=== PATIENT | male | born 1945 | race Caucasian/White ===

== ENCOUNTER 2016-08-25 08:55 | Inpatient (IN) ==
[2016-08-25] MEDS ORDERED: DIPH/TET/ACEL PERT BOOSTER VACCINE 0.5 ML VIAL IM ONE ×2 (09:52→11:21)
--- NOTE | 2016-08-25 09:57 | Emergency Department Note ---
Arrival - Arrival ED Nursing Triage Note: reports was at [facility] going out to get a vehicle and fell onto ground. reports fell onto right side. reportsright hip pain and cant bear any weight. 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 also c/o right side neck pain. c collar placed on pt in triage. Mode of Arrival: Wheelchair Source: Patient - History of Present Illness Onset (ago): minute(s) (30) Severity: mild Quality: aching <Vanesa Jacques - Last Filed: 08/25/16 10:03> <Garcia Crockett - Last Filed: 08/25/16 10:55> - Arrival Chief Complaint: Fall Stated Complaint: FALL, ABD PAIN Time Seen by Provider: 08/25/16 09:40 - History of Present Illness HPI Narrative: 71 y/o white male presents to the ER per EMS complaining of right hip pain and right shoulder pain S/P fall. Patient states he was at [facility] when he tripped and fell. After falling he is unable to bear weight. Denies LOC. Past medical history significant for CAD, Cardiac Stent, HTN, GERD, Gout, RA, Depression. (Vanesa Jacques) Allergies/Adverse Reactions: Allergies Allergy/AdvReac Type Severity Reaction Status Date / Time No Known Allergies Allergy Unverified 12/22/14 14:08 Home Medications: Home Medications Medication Instructions Recorded Confirmed Type Aspirin [Ecotrin] 81 mg PO DAILY 12/22/14 08/25/16 History Clopidogrel Bisulfate [Clopidogrel] 75 mg PO DAILY 12/22/14 08/25/16 History Metoprolol Tartrate Tab [Lopressor 25 mg PO DAILY 12/22/14 08/25/16 History Tab] Pravastatin Sodium 80 mg PO DAILY 12/22/14 08/25/16 History tiZANidine [Zanaflex] 4 mg PO DAILY 12/22/14 08/25/16 History Allopurinol [Zyloprim] 100 mg PO DAILY 08/25/16 08/25/16 History Dexlansoprazole [Dexilant] 60 mg PO DAILY 08/25/16 08/25/16 History Zolpidem Tartrate 10 mg PO BEDTIME 08/25/16 08/25/16 History Review of System - Review of System 12 point system: reviewed and no additional remarkable complaints except as stated - Review of System Musculoskeletal: Present: other (right hip pain; right shoulder pain; neck pain ) Skin: Present: other (abrasions to right hand; and to right elbow ) <Vanesa Jacques - Last Filed: 08/25/16 10:03> Medical,Surgical,& Family Hx - Medical History Cardio: History of: CAD (stent 2004), Hypertension, Cardiovascular Problems ( STENTS X 2) Psychological: History of: Depression Neurology: No history of: Seizures HEENT: History of: Ear Problem (HARD OF HEARING), Eye Problem (GLASSES, CATARACTS) Endocrine: No history of: Diabetes Mellitus (IDDM), Diabetes Mellitus (NIDDM) Rheumatology: History of;: Gout, Rheumatoid Arthritis Respiratory: No history of: Asthma, COPD Renal: History of: Renal Problems (BLOOD IN URINE) Genitourinary: No history of: Kidney Stones, Prostate Problems, Problems Gastrointestinal: History of: GERD, GI Problems (remote history of peptic ulcer disease) No history of: Gastrointestinal Bleed, Liver Problems Musculoskeletal: History of: Musculoskeletal Problems (LEFT SHOULDER PAIN) Hematology: History of: Bleeding Problems (BLOOD IN URINE), Clotting Problems ( PAST HISTORY OF BLOOD CLOT IN RIGHT LEG) - Surgical History Cardiac Surgeries: Sugical HX of: Cardiac Catheterization (coronary stents) HEENT Surgeries: Surgical HX of: Tonsilectomy & Adenoidectomy Abdominal Surgeries: Surgical HX of: Abdominal Surgery, Appendectomy, Colonoscopy, EGD - Family History Family History: Reports;: Family Cancer (DAD), Family Diabetes (MOM), Family Heart Disease (MOM), Family Hypertension (MOM), Family Stroke (MOM) - Social History Smoking Status: Former smoker <Vanesa Jacques - Last Filed: 08/25/16 10:03> Exam - General General appearance: alert, in no apparent distress - ENT ENT exam: Present: normal exam, normal oropharynx, mucous membranes moist - Neck Neck exam: Present: tenderness (cervicle spine ) - Chest Chest inspection: Present: normal inspection - Respiratory Respiratory exam: Present: normal lung sounds bilaterally - Cardiovascular Cardiovascular exam: Present: regular rate, normal rhythm, normal heart sounds - Abdominal Exam Abdominal exam: Present: soft, normal bowel sounds. Absent: tenderness - Extremities Exam Extremities exam: Present: tenderness (diffuse TTP to right shoulder; no swelling or ecchymosis ), other - Expanded Lower Right Lower Hip/Pelvis exam: Present: tenderness (right femoral neck ) - Back Exam Back exam: Present: normal inspection. Absent: vertebral tenderness - Neurological Exam Neurological exam: Present: alert, oriented X3 - Psychiatric Psychiatric exam: Present: normal affect, normal mood - Skin Skin exam: Present: warm, dry, other (superficial abrasions to right elbow and palm or right hand; no active bleeding) <Vanesa Jacques - Last Filed: 08/25/16 10:03> - Expanded Upper Right Upper Extremity Elbow exam: Present: full ROM, abrasion Hand exam: Present: full ROM, abrasion <Garcia Crockett - Last Filed: 08/25/16 10:55> Vital Signs: Vital Signs Temperature 97.6 F 08/25/16 09:20 Pulse Rate 61 08/25/16 09:50 Respiratory Rate 16 08/25/16 09:50 Blood Pressure 146/89 08/25/16 09:50 O2 Sat by Pulse Oximetry 99 08/25/16 09:50 (Vaneas Jacques) (Garcia Crockett) Disposition <Vanesa Jacques - Last Filed: 08/25/16 10:03> Case discussed with: patient <Garcia Crockett - Last Filed: 08/25/16 10:55> Clinical Impression: Subcapital fracture of neck of right femur Disposition: Still a Patient Condition: Stable Additional Instructions: Admit for surgical repair.
--- NOTE | 2016-08-25 10:32 | XRay Report ---
History: Right hip pain related to fall. Unable to bear weight Date: 08/25/2016 Study: Right hip 2 views Comparison exam: No previous dedicated right hip x-ray There is a nondisplaced incomplete acute subcapital impaction fracture of the right hip with anatomic alignment. No additional fracture seen. There is mild osteophyte formation of the right hip. There is osteopenia. Impression: Acute nondisplaced incomplete subcapital fracture right hip PROCEDURE INTERPRETED AT [facility] DEPARTMENT OF RADIOLOGY Final Report Signed by: Dr. Cass Degroot
--- NOTE | 2016-08-25 10:35 | XRay Report ---
History: Neck pain after fall Date: 08/25/2016 Study: Cervical spine 5 views Comparison exam: Cervical spine x-ray August 13, 2013 There is no fracture, subluxation, or prevertebral soft tissue swelling. There is osteopenia. There is moderate degenerative disc narrowing at C5-C6. There is mild anterior spondylosis at C5-C6 and C6-C7. There is mild facet hypertrophy. There is no focal lytic or blastic lesion. Impression: No acute fracture. Degenerative disc disease. Osteopenia PROCEDURE INTERPRETED AT [facility] DEPARTMENT OF RADIOLOGY Final Report Signed by: Dr. Cass Degroot
--- NOTE | 2016-08-25 10:35 | XRay Report ---
Exam: XR shoulder 2V RT Date: 08/25/2016 9:51 AM Comparison: None Indication: Right shoulder pain after fall Technique: Two-view right shoulder Findings: A.c. joint arthropathy with inferior osteophyte. No fracture or dislocation. Old healed fracture of the right sixth posterior rib. Impression: A.c. joint arthropathy with inferior osteophyte. No fracture or dislocation. Old healed fracture of the right sixth rib. PROCEDURE INTERPRETED AT [facility] DEPARTMENT OF RADIOLOGY Final Report Signed by: Dr. Nuria Mcdonald
[2016-08-25] MEDS ORDERED: traZODone 50 MG TABLET PO PRN (11:04)
[2016-08-25] MEDS ORDERED: BISACODYL 5 MG TABLET PO PRN (11:04)
--- NOTE | 2016-08-25 11:17 | Orthopedic Consult Note ---
History of Present Illness Chief complaint: right hip pain History of present illness: Mr. Martinez is a 71 year old male who had a fall earlier today. He family member had an appointment at the [facility], he fell as he was going to get the car. He denies any syncope or presyncopal symptoms. States he lost his balance and fell onto his right side. After fall he began complaining of right hip and right shoulder pain. He was then transported here to the emergency department for evaluation. He's had surgery on the right hand in the distant past for traumatic injury. He had stents placed by Dr. Yeager in the past and does take Plavix for this. Home Medications Medication Instructions Recorded Confirmed Type Aspirin [Ecotrin] 81 mg PO DAILY 12/22/14 08/25/16 History Clopidogrel Bisulfate [Clopidogrel] 75 mg PO DAILY 12/22/14 08/25/16 History Metoprolol Tartrate Tab [Lopressor 25 mg PO DAILY 12/22/14 08/25/16 History Tab] Pravastatin Sodium 80 mg PO DAILY 12/22/14 08/25/16 History tiZANidine [Zanaflex] 4 mg PO DAILY 12/22/14 08/25/16 History Allopurinol [Zyloprim] 100 mg PO DAILY 08/25/16 08/25/16 History Dexlansoprazole [Dexilant] 60 mg PO DAILY 08/25/16 08/25/16 History Zolpidem Tartrate 10 mg PO BEDTIME 08/25/16 08/25/16 History Allergies Allergy/AdvReac Type Severity Reaction Status Date / Time No Known Allergies Allergy Unverified 12/22/14 14:08 12 point system: reviewed and no additional remarkable complaints except as stated Medical,Surgical,& Family Hx - Medical History Cardio: History of: CAD (stent 2003), Hypertension, Cardiovascular Problems ( STENTS X 2) Psychological: History of: Depression Neurology: No history of: Seizures HEENT: History of: Ear Problem (HARD OF HEARING), Eye Problem (GLASSES, CATARACTS) Endocrine: No history of: Diabetes Mellitus (IDDM), Diabetes Mellitus (NIDDM) Rheumatology: History of;: Gout, Rheumatoid Arthritis Respiratory: No history of: Asthma, COPD Renal: History of: Renal Problems (BLOOD IN URINE) Genitourinary: No history of: Kidney Stones, Prostate Problems, Problems Gastrointestinal: History of: GERD, GI Problems (remote history of peptic ulcer disease) No history of: Gastrointestinal Bleed, Liver Problems Musculoskeletal: History of: Musculoskeletal Problems (LEFT SHOULDER PAIN) Hematology: History of: Bleeding Problems (BLOOD IN URINE), Clotting Problems ( PAST HISTORY OF BLOOD CLOT IN RIGHT LEG) - Surgical History Cardiac Surgeries: Sugical HX of: Cardiac Catheterization (coronary stents) HEENT Surgeries: Surgical HX of: Tonsilectomy & Adenoidectomy Abdominal Surgeries: Surgical HX of: Abdominal Surgery, Appendectomy, Colonoscopy, EGD - Family History Family History: Reports;: Family Cancer (DAD), Family Diabetes (MOM), Family Heart Disease (MOM), Family Hypertension (MOM), Family Stroke (MOM) - Social History Smoking Status: Former smoker Exam - Constitutional Vitals: Period Temp Pulse Resp BP Sys/Schwartz Pulse Ox Last 24 Hr 97.6 F 57-63 16-18 130-173/74-89 99-100 Exam: Right upper extremity: He has a small abrasion on the medial aspect of the right elbow. He has full range of motion both actively and passively at the shoulder, elbow, wrist, and hand. He's tender about the posterior shoulder. He is otherwise neurovascularly intact. He has a healed skin graft on the ulnar aspect of the right palm. Right lower extremity: He has pain in the hip and groin with internal/external rotation of the right hip. He is nontender in the knee ankle and foot. He has a 1+ dorsalis pedis pulse. He can wiggle his toes and dorsiflex and plantarflex the foot. Results - Diagnostic Findings Procedure: X-ray: image reviewed by me (retrogress of the shoulder show no fracture, everything is well aligned. Retrogress of the right hip show minimally displaced fracture right hip subcapital region) Assessment and Plan (1) Subcapital fracture of neck of right femur Status: Acute Assessment and plan: I discussed the injury at length with Mr. Martinez today in the emergency department. I described the femoral neck fracture in detail. I recommended closed reduction and pinning of the fracture to prevent displacement and allow him to weight-bear on the hip for ambulatory purposes. All questions were answered to his satisfaction. Risks, alternatives, and benefits to undergoing this procedure were discussed in great detail, the patient voiced understanding desire proceed. Risks discussed included, but were not limited to, bleeding, infection, damage to arteries and nerves, nonunion, malunion, need for revision surgery, as well as medical complications. We'll get him on the schedule for this afternoon as he did eat breakfast this morning. We will have to see how he does postoperatively with therapy to see whether he not he can go home with home therapy or if he will need rehabilitation placement. Current Visit: Yes
[2016-08-25] MEDS ORDERED: ceFAZolin 1,000 MG VIAL ONE (11:20)
[2016-08-25 11:25] LABS: Basophils # 0.1 10*3/uL (0.0-0.2); Basophils % 0.8 % (0.0-0.8); Eosinophils # 0.4 10*3/uL (0.0-0.87); Eosinophils % 4.9 % (0.00-10.9); Hematocrit 45.1 VOL% (42.0-52.0); Hemoglobin 15.1 GM/DL (14.0-18.0); Immature Granulocytes % 0.5 %; Immature Granulocytes Absolute 0.04 #; Lymphocytes # 1.3 10*3/uL (1.4-4.0); Lymphocytes % 16.4 % (21.2-54.2); Mean Corpuscular HGB Conc 33.5 GM/DL (32-36); Mean Corpuscular Hemoglobin 31 PG (27-34); Mean Platelet Volume 9.8 FL (9.6-12.0); Monocytes # 0.6 10*3/uL (0.11-0.8); Monocytes % 7.3 % (1.7-12.7); Neutrophils # 5.6 10*3/uL (1.4-7.4); Neutrophils % 70.1 % (38.7-73.9); Platelet Count 153 10*3/uL (130-400); Red Cell Distribution Width 12.7 % (9.3-17.3); White Blood Count 7.9 10*3/uL (4.5-13.71)
--- NOTE | 2016-08-25 11:36 | EKG Report ---
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
[2016-08-25 11:55] LABS: Albumin 3.7 G/DL (3.4-5.0); Bilirubin,Total 0.7 MG/DL (0.2-1.0); Calcium 8.5 MG/DL (8.5-10.1); Osmolality,Calculated 287.1 MOS/KG (273-304); Potassium 5.6 MMOL/L (3.5-5.1)
[2016-08-25] MEDS: DEXTROSE 5% NACL 0.45% 1,000 ML IV SCH ×2 (12:21→20:31)
[2016-08-25] MEDS: HYDROmorphone 2 MG/1 ML VIAL IV PRN ×6 (12:22→18:14)
--- NOTE | 2016-08-25 13:20 | Family Practice History&Phys ---
Assessment and Plan (1) Subcapital fracture of neck of right femur Status: Acute Assessment and plan: 08/25/2016: Patient seen and evaluated by Dr. Sanchez and is scheduled for surgery later this afternoon. She was noted to have a normal EKG in the emergency room. Patient has no contraindications to planned procedure and has no increased risk of cardiovascular or pulmonary complications except those attributable to his age. Current Visit: Yes History of Present Illness Chief complaint: hip pain History of present illness: Mr. 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 Patient injured his right hip in the process as well as his right shoulder and right elbow. He had no loss of consciousness. He had x-rays of the hip made emergency room film have a subcapital fracture of the right hip. The remainder of his x-rays were unremarkable. Patient denied any headache and he denies any back pain or right lower extremity pain. He denies any nausea or vomiting. Patient is not having any chest pain or shortness of breath. Home Medications Medication Instructions Recorded Confirmed Type Aspirin [Ecotrin] 81 mg PO DAILY 12/22/14 08/25/16 History Clopidogrel Bisulfate [Clopidogrel] 75 mg PO DAILY 12/22/14 08/25/16 History Metoprolol Tartrate Tab [Lopressor 25 mg PO DAILY 12/22/14 08/25/16 History Tab] Pravastatin Sodium 80 mg PO DAILY 12/22/14 08/25/16 History tiZANidine [Zanaflex] 4 mg PO DAILY 12/22/14 08/25/16 History Allopurinol [Zyloprim] 100 mg PO DAILY 08/25/16 08/25/16 History Dexlansoprazole [Dexilant] 60 mg PO DAILY 08/25/16 08/25/16 History Zolpidem Tartrate 10 mg PO BEDTIME 08/25/16 08/25/16 History Allergies Allergy/AdvReac Type Severity Reaction Status Date / Time No Known Allergies Allergy Unverified 12/22/14 14:08 12 point system: reviewed and no additional remarkable complaints except as stated - Cardiovascular Cardiovascular: Absent: chest pain at rest, chest pain with activity, dyspnea - Respiratory Respiratory: Absent: dyspnea - Musculoskeletal Musculoskeletal: Present: as per HPI, arthralgias (right hip, right elbow and right shoulder.) - Neurological Neurological: Absent: confusion, dizziness, focal weakness, frequent falls, numbness, paresthesias - Psychiatric Psychiatric: Absent: anxiety, confusion, depression - Endocrine Endocrine: Absent: fatigue, polydipsia, polyphagia Medical,Surgical,& Family Hx - Medical History Cardio: History of: CAD (stent 2004), Hypertension, Cardiovascular Problems ( STENTS X 2) Psychological: History of: Depression Neurology: No history of: Seizures HEENT: History of: Ear Problem (HARD OF HEARING), Eye Problem (GLASSES, CATARACTS) Endocrine: No history of: Diabetes Mellitus (IDDM), Diabetes Mellitus (NIDDM) Rheumatology: History of;: Gout, Rheumatoid Arthritis Respiratory: No history of: Asthma, COPD Renal: History of: Renal Problems (BLOOD IN URINE) Genitourinary: No history of: Kidney Stones, Prostate Problems, Problems Gastrointestinal: History of: GERD, GI Problems (remote history of peptic ulcer disease) No history of: Gastrointestinal Bleed, Liver Problems Musculoskeletal: History of: Musculoskeletal Problems (LEFT SHOULDER PAIN) Hematology: History of: Bleeding Problems (BLOOD IN URINE), Clotting Problems ( PAST HISTORY OF BLOOD CLOT IN RIGHT LEG) - Surgical History Cardiac Surgeries: Sugical HX of: Cardiac Catheterization (coronary stents) HEENT Surgeries: Surgical HX of: Tonsilectomy & Adenoidectomy Abdominal Surgeries: Surgical HX of: Abdominal Surgery, Appendectomy, Colonoscopy, EGD - Family History Family History: Reports;: Family Cancer (DAD), Family Diabetes (MOM), Family Heart Disease (MOM), Family Hypertension (MOM), Family Stroke (MOM) - Social History Smoking Status: Former smoker Exam - Constitutional Vitals: Period Temp Pulse Resp BP Sys/Schwartz Pulse Ox Last 24 Hr 66 15 151/87 98 Exam: General: Objective patient is a well-developed white male in no acute distress. Patient states his right hip is painful with any motion. HEENT: Pupils equal and reactive to light. Patent nares and airway Neck: No meningismus, adenopathy, thyromegaly. There are no auscultated carotid bruits. Cardiovascular: Regular rhythm. No murmurs or gallops Chest: Clear to auscultation without rales rhonchi wheezes. Abdomen: Soft nontender to palpation No masses, rebound, guarding or tenderness. Neuro: Cranial nerves intact and DTRs and strength symmetric in all extremities. Dermatologic: No evidence of abnormal lesions or masses. Musculoskeletal: Patient has abrasion to his right elbow and his right hand range of motion of both. Results - Labs CBC & BMP: 08/25/16 11:09 08/25/16 11:09 Lab Results: I have reviewed the past 24 hour labs - EKG EKG results: sinus rhythm (59 bpm) - Diagnostic Findings Procedure: Chest x-ray: report reviewed by me (chest x-ray is normal.), X-ray: report reviewed by me (patient was sent For fractured right hip. Patient shoulder and cervical spine films were normal)
--- NOTE | 2016-08-25 13:35 | XRay Report ---
Portable chest Date:[08/25/2016 Clinical history: Respiratory preop evaluation, hip fracture Comparison: 08/15/2013] Technique: Portable AP sitting chest Findings: The heart is normal in size with calcification aortic knob. Chronic scarring in the lungs with old healed left rib fractures. Degenerative changes are noted with stable mediastinum. Impression: No acute cardiopulmonary pathology identified. PROCEDURE INTERPRETED AT [facility] DEPARTMENT OF RADIOLOGY Final Report Signed by: Dr. Nuria Mcdonald
[2016-08-25] MEDS ORDERED: ceFAZolin 2,000 MG in PREMIX 1 EACH IV ONE (14:30)
[2016-08-25] MEDS: METOPROLOL TARTRATE 25 MG TABLET PO SCH (14:47)
[2016-08-25] MEDS ORDERED: PROPOFOL 200 MG/20 ML VIAL IV ONE (15:28)
[2016-08-25] MEDS ORDERED: LIDOCAINE 2% 5 ML VIAL ONE (15:28)
[2016-08-25] MEDS ORDERED: ONDANSETRON 4 MG/2 ML VIAL ONE ×2 (15:28→16:34)
[2016-08-25] MEDS ORDERED: PHENYLEPHRINE 1 MG/10 ML SYRINGE IV ONE (15:28)
[2016-08-25] MEDS ORDERED: GLYCOPYRROLATE 0.4 MG/2 ML VIAL ONE (15:28)
[2016-08-25] MEDS ORDERED: ACETAMINOPHEN 325 MG TABLET PO PRN (16:18)
[2016-08-25] MEDS: LACTATED RINGERS 1,000 ML IV SCH ×2 (16:30→23:42)
[2016-08-25] MEDS ORDERED: HYDROmorphone 2 MG/1 ML VIAL ONE (16:34)
[2016-08-25] MEDS ORDERED: SEVOFLURANE 1 UNIT/15 MINUTE INH ONE (16:37)
[2016-08-25] MEDS ORDERED: fentaNYL 100 MCG/2 ML VIAL ONE (16:38)
[2016-08-25] MEDS ORDERED: MIDAZOLAM 2 MG/2 ML VIAL ONE (16:38)
[2016-08-25] MEDS ORDERED: ONDANSETRON 4 MG/2 ML VIAL IV PRN (16:43)
--- NOTE | 2016-08-25 16:53 | XRay Report ---
XR hip 2V RT Indication: ORIF right hip Comparison: Right hip x-ray dated August 25, 2016 10:02 AM Technique: 3 intraoperative fluoroscopic views of the right hip including frontal and lateral positions. Fluoroscopy time one minute 12 seconds. Findings: Images demonstrate 3 orthopedic screws placed within the femoral neck. Please see operative report for details. IMPRESSION: As above. PROCEDURE INTERPRETED AT [facility] DEPARTMENT OF RADIOLOGY Final Report Signed by: Dr Eric Mccormack
--- NOTE | 2016-08-25 17:40 | Anesthesia ---
Anesthesia Post OP - Post Ansesthetic Evaluation Patient seen in post op: Yes Resp: within normal limits CV: within normal limits Mental: within normal limits Temp: within normal limits Aodg-[id number]-[id number]: within normal limits Nausea and Vomiting: within normal limits Pain: within normal limits
--- NOTE | 2016-08-25 18:17 | XRay Report ---
XR hip 1V RT Indication: Postop Comparison: Right hip x-ray dated August 25, 2016 at 10:02 AM Technique: Single frontal view of the right hip. Findings: Interval placement of 3 orthopedic screws within the femoral neck traversing a subcapital femoral neck fracture. Superficial skin mariah noted. IMPRESSION: As above. PROCEDURE INTERPRETED AT [facility] DEPARTMENT OF RADIOLOGY Final Report Signed by: Dr Eric Mccormack
[2016-08-25] MEDS: ACETAMINOPHEN 500 MG TABLET PO SCH (20:29)
[2016-08-25] MEDS: ZALEPLON 5 MG CAPSULE PO SCH (20:30)
[2016-08-25] MEDS: ceFAZolin 2,000 MG in PREMIX 1 EACH IV SCH (22:09)
[2016-08-26] MEDS: ACETAMINOPHEN 500 MG TABLET PO SCH ×3 (01:19→13:56)
[2016-08-26] MEDS: ceFAZolin 2,000 MG in PREMIX 1 EACH IV SCH (05:04)
--- NOTE | 2016-08-26 05:41 | Family Practice Progress Note ---
Family Practice - PN: Subj Interval history: Patient's doing well postop with only postop pain. He denies any chest pain shortness of breath or other concerns. Exam (Progress Note) - Constitutional Vitals: Period Temp Pulse Resp BP Sys/Schwartz Pulse Ox Last 24 Hr 97.3 F-98.1 F 56-78 15-20 111-159/58-94 95-100 Exam: Objective a well-developed gentleman is awake alert and able give good history. Cardiovascular: Heart rates regular without murmurs or gallops. Respiratory: Lungs clear to auscultation bilaterally. Abdomen: The abdomen soft and nontender to palpation. Results - Labs CBC & BMP: 08/25/16 11:09 08/25/16 11:09 Lab Results: I have reviewed the past 24 hour labs Assessment and Plan (1) Subcapital fracture of neck of right femur Status: Acute Assessment and plan: 08/25/2016: Patient seen and evaluated by Dr. Sanchez and is scheduled for surgery later this afternoon. She was noted to have a normal EKG in the emergency room. Patient has no contraindications to planned procedure and has no increased risk of cardiovascular or pulmonary complications except those attributable to his age. 08/26/2016: Patient is doing well postop. Current Visit: Yes
[2016-08-26 06:17] LABS: Basophils # 0.1 10*3/uL (0.0-0.2); Basophils % 0.9 % (0.0-0.8); Eosinophils # 0.4 10*3/uL (0.0-0.87); Eosinophils % 5.8 % (0.00-10.9); Hematocrit 41.2 VOL% (42.0-52.0); Hemoglobin 13.3 GM/DL (14.0-18.0); Immature Granulocytes % 0.5 %; Immature Granulocytes Absolute 0.04 #; Lymphocytes # 1.3 10*3/uL (1.4-4.0); Lymphocytes % 16.9 % (21.2-54.2); Mean Corpuscular HGB Conc 32.3 GM/DL (32-36); Mean Corpuscular Hemoglobin 30 PG (27-34); Mean Corpuscular Volume 93.4 FL (87-102); Monocytes # 0.8 10*3/uL (0.11-0.8); Monocytes % 10.6 % (1.7-12.7); Neutrophils # 4.9 10*3/uL (1.4-7.4); Neutrophils % 65.3 % (38.7-73.9); Platelet Count 141 10*3/uL (130-400); Red Blood Count 4.41 10*6/uL (3.8-5.5); Red Cell Distribution Width 12.5 % (9.3-17.3); White Blood Count 7.5 10*3/uL (4.5-13.71)
[2016-08-26 06:50] LABS: Potassium 4.4 MMOL/L (3.5-5.1)
--- NOTE | 2016-08-26 08:28 | Orthopedic Progress Note ---
Assessment and Plan (1) Subcapital fracture of neck of right femur Status: Acute Assessment and plan: DVT prophylaxis Out of bed with therapy twice daily Discharge planning Current Visit: Yes Orthopedics - Subjective Interval history: Patient states he didn't get much sleep last night due to his right hip pain. On exam slight amount of sanguis drainage on his dressing, he is neurovascularly intact. Exam - Constitutional Vitals: Period Temp Pulse Resp BP Sys/Schwartz Pulse Ox Last 24 Hr 97.3 F-98.1 F 56-78 15-20 111-159/58-94 95-100 Results - Labs CBC & BMP: 08/26/16 05:37 08/26/16 05:37
--- NOTE | 2016-08-26 08:32 | Discharge Summary ---
Hospital Course - Hospital Course Hospital Course: Please see Dr. Arrieta discharge summary for details of the patient's hospitalization. This summary was entered for follow-up instructions only. Diagnosis - Discharge Diagnosis (1) Subcapital fracture of neck of right femur Status: Acute Specialty Discharge - Follow Up or Referrals Follow up with: Vito Sanchez MD [Physician] - 09/21/16 12:15 pm (3-4 weeks) Discharge Plan - Discharge Data Disposition: Swing Bed W Planned Readmit Condition at Discharge: Stable Discharge Diet: advance to your usual diet Activity: ambulate only with your walker Hygiene: may shower Weight Bearing at Discharge: weight bear as tolerated Driving: not until seen by doctor Contact your physician if you experience:: fever over 101, Difficulty voiding, Redness or swelling, Nausea/Vomiting, Shortness of breath, Bleeding, pain uncontrolled by pain medications - Discharge Medications New Bisacodyl Tab [Dulcolax Tab] 10 mg PO DAILY PRN #0 tablet PRN Reason: Constipation Magnesium Hydroxide Susp [Milk of Magnesia] 30 ml PO Q6H PRN #0 udcup PRN Reason: Constipation Zaleplon [Sonata] 5 mg PO BEDTIME capsule diphenhydrAMINE CAP [Benadryl Cap] 25 mg PO Q6H PRN #0 capsule PRN Reason: Itching HYDROcodone/ACETAMIN 7.5-325 [[place] 7.5-325] 1 - 2 tablet PO Q4H PRN #60 tablet PRN Reason: Pain Moderate (4-7) Acetaminophen Tab [Tylenol Tab] 650 mg PO Q6H PRN #0 tablet PRN Reason: Pain Mild (1-3) Pantoprazole Tab [Protonix Tab] 40 mg PO DAILY tablet Continue tiZANidine [Zanaflex] 4 mg PO DAILY Clopidogrel Bisulfate [Clopidogrel] 75 mg PO DAILY Pravastatin Sodium 80 mg PO DAILY Metoprolol Tartrate Tab [Lopressor Tab] 25 mg PO DAILY Aspirin [Ecotrin] 81 mg PO DAILY Dexlansoprazole [Dexilant] 60 mg PO DAILY Allopurinol [Zyloprim] 100 mg PO DAILY Discontinued Zolpidem Tartrate 10 mg PO BEDTIME Zolpidem Tartrate [Ambien] 10 mg PO BEDTIME - Follow Up or Referral Follow Up: Vito Sanchez MD [Physician] - 09/21/16 12:15 pm (3-4 weeks) - Forms/Instructions Instructions: Hip Fracture (GEN) Additional Discharge Instructions: Weight-bear as tolerated right lower extremity. Daily dressing change beginning 08/30/2015. Okay to shower , no tub soaks. [place] out 09/07/2015 Exam - Constitutional Vitals: Period Temp Pulse Resp BP Sys/Schwartz Pulse Ox Last 24 Hr 97.3 F-98.1 F 56-78 15-20 111-159/58-94 95-100 Discharge Results Procedures and tests throughout hospitalization: Pending Orders 08/27/16 04:00 Comp Blood Count Auto Diff IN AM 08/28/16 04:00 Comp Blood Count Auto Diff IN AM Labs on day of discharge: Labs from last 24 hours 08/26/16 08/26/16 08/25/16 05:37 05:37 11:09 WBC 7.5 RBC 4.41 Hgb 13.3 L Hct 41.2 L MCV 93.4 MCH 30 MCHC 32.3 RDW 12.5 Plt Count 141 MPV 10.0 Neut % (Auto) 65.3 Lymph % (Auto) 16.9 L Morgan % (Auto) 10.6 Eos % (Auto) 5.8 Baso % (Auto) 0.9 H Neut # (Auto) 4.9 Lymph # (Auto) 1.3 L Morgan # (Auto) 0.8 Eos # (Auto) 0.4 Baso # (Auto) 0.1 Immature Gran % 0.5 Nucleated RBC % 0.0 Immature Gran # 0.04 Nucleated RBCs # 0.00 Sodium 143 Potassium 4.4 Chloride 106 Carbon Dioxide 29 Anion Gap 12.4 BUN 21 H Creatinine 1.60 H GFR Calculation 53 BUN/Creatinine Ratio 13.00 Glucose 98 Calculated Osmolality 287.0 Calcium 8.0 L Total Bilirubin AST ALT Alkaline Phosphatase Total Protein Albumin Globulin Albumin/Globulin Ratio Blood Type O POSITIVE Antibody Screen Negative 08/25/16 08/25/16 11:09 11:09 WBC 7.9 RBC 4.90 Hgb 15.1 Hct 45.1 MCV 92.0 MCH 31 MCHC 33.5 RDW 12.7 Plt Count 153 MPV 9.8 Neut % (Auto) 70.1 Lymph % (Auto) 16.4 L Morgan % (Auto) 7.3 Eos % (Auto) 4.9 Baso % (Auto) 0.8 Neut # (Auto) 5.6 Lymph # (Auto) 1.3 L Morgan # (Auto) 0.6 Eos # (Auto) 0.4 Baso # (Auto) 0.1 Immature Gran % 0.5 Nucleated RBC % 0.0 Immature Gran # 0.04 Nucleated RBCs # 0.00 Sodium 142 Potassium 5.6 H Chloride 108 H Carbon Dioxide 27 Anion Gap 12.6 BUN 27 H Creatinine 1.90 H GFR Calculation 44 BUN/Creatinine Ratio 14.00 Glucose 96 Calculated Osmolality 287.1 Calcium 8.5 Total Bilirubin 0.70 AST 36 ALT 20 Alkaline Phosphatase 92 Total Protein 7.0 Albumin 3.7 Globulin 3.3 Albumin/Globulin Ratio 1.1 Blood Type Antibody Screen DS: Provider Date of admission: 08/25/16 11:03 Primary care physician: . No PCP Attending physician on admission: Royce Arrieta MD Consults: 08/25/16 11:04 Consult to Anesthesiology [CONS] Routine Consulting Provider: Reason for Anesthesiology: Pre-op Clearance 08/25/16 11:06 Consult to Physician [CONS] Routine Comment: fracture right hip Consulting Provider: Vito Sanchez Consulting Provider Notified: Yes When should Consulting Provider be notified: Now Person Notified: anirudh fritz Date Notified: 08/25/16 Time Notified: 13:49 08/25/16 14:23 Consult to Pharmacy [CONS] Routine Reason for Pharmacy Consult: Adjust Meds Renal Funct 08/25/16 16:18 Consult to Occupational Therapy [CONS] Routine Reason for Occupational Therapy: Evaluate and Treat Consult to Physical Therapy [CONS] Routine Reason for Physical Therapy: Evaluate and Treat Consult Comment: wbat 08/25/16 16:19 Consult to Case Mgmt/Social Srvs [CONS] Routine Reason for Case Mgmt/Social Srvs: Home Health Rehab Equipment Discharging clinician: Vito Sanchez MD
[2016-08-26] MEDS: METOPROLOL TARTRATE 25 MG TABLET PO SCH ×2 (09:14→09:17)
[2016-08-26] MEDS: ASPIRIN EC 81 MG TABLET PO SCH (09:14)
[2016-08-26] MEDS: PANTOPRAZOLE 40 MG TABLET PO SCH (09:14)
[2016-08-26] MEDS: PRAVASTATIN 40 MG TABLET PO SCH (09:15)
[2016-08-26] MEDS: CLOPIDOGREL 75 MG TABLET PO SCH (09:15)
[2016-08-26] MEDS: tiZANidine 4 MG TABLET PO SCH (09:15)
[2016-08-26] MEDS: ALLOPURINOL 100 MG TABLET PO SCH (09:16)
[2016-08-26] MEDS: ENOXAPARIN 40 MG/0.4 ML SYRINGE SUBCUT SCH (09:18)
[2016-08-26] MEDS: KETOROLAC 15 MG/1 ML VIAL IV PRN ×2 (14:02→21:01)
[2016-08-26] MEDS: ONDANSETRON 4 MG/2 ML VIAL IV PRN ×2 (16:28→21:01)
[2016-08-26] MEDS: ZALEPLON 5 MG CAPSULE PO SCH (21:01)
[2016-08-26] MEDS: DEXTROSE 5% NACL 0.45% 1,000 ML IV SCH (23:27)
[2016-08-27 02:53] LABS: Basophils # 0.1 10*3/uL (0.0-0.2); Basophils % 0.7 % (0.0-0.8); Eosinophils # 0.3 10*3/uL (0.0-0.87); Eosinophils % 4.3 % (0.00-10.9); Hematocrit 42.9 VOL% (42.0-52.0); Hemoglobin 14.3 GM/DL (14.0-18.0); Immature Granulocytes % 0.5 %; Immature Granulocytes Absolute 0.04 #; Lymphocytes # 1.1 10*3/uL (1.4-4.0); Lymphocytes % 15.3 % (21.2-54.2); Mean Corpuscular HGB Conc 33.3 GM/DL (32-36); Mean Corpuscular Hemoglobin 31 PG (27-34); Mean Corpuscular Volume 92.5 FL (87-102); Monocytes # 0.7 10*3/uL (0.11-0.8); Monocytes % 9.1 % (1.7-12.7); Neutrophils # 5.2 10*3/uL (1.4-7.4); Neutrophils % 70.1 % (38.7-73.9); Platelet Count 150 10*3/uL (130-400); Red Blood Count 4.64 10*6/uL (3.8-5.5); Red Cell Distribution Width 12.2 % (9.3-17.3); White Blood Count 7.4 10*3/uL (4.5-13.71)
--- NOTE | 2016-08-27 10:20 | Orthopedic Progress Note ---
Assessment and Plan (1) Subcapital fracture of neck of right femur Status: Acute Assessment and plan: POD #2 right hip pinning, Cont care: pt, pain control, d/c planning constipation - has prn meds ordered, increase water and food intake as tolerated Current Visit: Yes Orthopedics - Subjective Interval history: pt sitting in chair. c/o constipation, denies pain, no other complaints. Exam - Constitutional Vitals: Period Temp Pulse Resp BP Sys/Schwartz Pulse Ox Last 24 Hr 97.3 F-98.1 F 61-72 15-19 113-163/67-86 92-98 - Extremities Exam Extremities exam: Present: normal inspection (RLE: dressing c/d/i, comp soft, sensation intact, pulses 2+, cap refill brisk, full AROM toes and ankle) Results - Labs CBC & BMP: 08/27/16 02:21 08/26/16 05:37 Specialty Discharge - Follow Up or Referrals Follow up with: Vito Sanchez MD [Physician] - (3-4 weeks)
[2016-08-27] MEDS: PRAVASTATIN 40 MG TABLET PO SCH (10:52)
[2016-08-27] MEDS: ASPIRIN EC 81 MG TABLET PO SCH (10:53)
[2016-08-27] MEDS: ALLOPURINOL 100 MG TABLET PO SCH (10:54)
[2016-08-27] MEDS: PANTOPRAZOLE 40 MG TABLET PO SCH (10:54)
[2016-08-27] MEDS: CLOPIDOGREL 75 MG TABLET PO SCH (10:54)
[2016-08-27] MEDS: tiZANidine 4 MG TABLET PO SCH (10:55)
[2016-08-27] MEDS: METOPROLOL TARTRATE 25 MG TABLET PO SCH (10:55)
[2016-08-27] MEDS: MAGNESIUM HYDROXIDE SUSP 30 ML UDCUP PO PRN ×2 (10:55→16:53)
[2016-08-27] MEDS: ENOXAPARIN 40 MG/0.4 ML SYRINGE SUBCUT SCH (10:56)
--- NOTE | 2016-08-27 18:39 | Family Practice Progress Note ---
Family Practice - PN: Subj Interval history: Patient is doing well overall. No new problems are identified. Awaiting swing bed or rehabilitation placement. Continue present treatment plan Exam (Progress Note) - Constitutional Vitals: Period Temp Pulse Resp BP Sys/Schwartz Pulse Ox Last 24 Hr 96.8 F-98.1 F 60-72 15-18 152-165/74-89 92-100 Results - Labs CBC & BMP: 08/27/16 02:21 08/26/16 05:37 Specialty Discharge - Follow Up or Referrals Follow up with: Vito Sanchez MD [Physician] - (3-4 weeks)
[2016-08-27] MEDS ORDERED: ZOLPIDEM 5 MG TABLET PO SCH (21:00)
[2016-08-27] MEDS: ZALEPLON 5 MG CAPSULE PO SCH (21:33)
[2016-08-28 02:23] LABS: Basophils # 0.1 10*3/uL (0.0-0.2); Basophils % 0.7 % (0.0-0.8); Eosinophils # 0.4 10*3/uL (0.0-0.87); Eosinophils % 5.6 % (0.00-10.9); Hemoglobin 14.2 GM/DL (14.0-18.0); Immature Granulocytes % 0.4 %; Immature Granulocytes Absolute 0.03 #; Lymphocytes # 1.1 10*3/uL (1.4-4.0); Lymphocytes % 15.6 % (21.2-54.2); Mean Corpuscular Hemoglobin 30 PG (27-34); Mean Corpuscular Volume 92.1 FL (87-102); Mean Platelet Volume 10.3 FL (9.6-12.0); Monocytes # 0.7 10*3/uL (0.11-0.8); Monocytes % 10.3 % (1.7-12.7); Neutrophils # 4.8 10*3/uL (1.4-7.4); Neutrophils % 67.4 % (38.7-73.9); Platelet Count 162 10*3/uL (130-400); Red Blood Count 4.67 10*6/uL (3.8-5.5); Red Cell Distribution Width 12.5 % (9.3-17.3); White Blood Count 7.2 10*3/uL (4.5-13.71)
[2016-08-28] MEDS ORDERED: LACTULOSE 20 GM/30 ML UDCUP PO PRN (10:52)
[2016-08-28] MEDS: MAGNESIUM HYDROXIDE SUSP 30 ML UDCUP PO PRN (11:26)
[2016-08-28] MEDS: diphenhydrAMINE CAP 25 MG CAPSULE PO PRN (11:27)
[2016-08-28] MEDS: ASPIRIN EC 81 MG TABLET PO SCH (11:28)
[2016-08-28] MEDS: CLOPIDOGREL 75 MG TABLET PO SCH (11:28)
[2016-08-28] MEDS: ALLOPURINOL 100 MG TABLET PO SCH (11:28)
[2016-08-28] MEDS: PANTOPRAZOLE 40 MG TABLET PO SCH (11:29)
[2016-08-28] MEDS: PRAVASTATIN 40 MG TABLET PO SCH (11:29)
[2016-08-28] MEDS: tiZANidine 4 MG TABLET PO SCH (11:29)
[2016-08-28] MEDS: METOPROLOL TARTRATE 25 MG TABLET PO SCH (11:30)
[2016-08-28] MEDS: ENOXAPARIN 40 MG/0.4 ML SYRINGE SUBCUT SCH (11:30)
--- NOTE | 2016-08-28 12:02 | Orthopedic Progress Note ---
Assessment and Plan (1) Subcapital fracture of neck of right femur Status: Acute Assessment and plan: POD #3 right hip pinning, Cont care: pt, pain control, d/c planning Current Visit: Yes Orthopedics - Subjective Interval history: pt s/e, no complaints. Exam - Constitutional Vitals: Period Temp Pulse Resp BP Sys/Schwartz Pulse Ox Last 24 Hr 97.6 F-98.6 F 60-89 16-19 148-170/75-89 95-98 - Extremities Exam Extremities exam: Present: normal inspection (RLE: dressing c/d/i, comp soft, sensation intact, cap refill brisk, calf supple. good AROM toes/ankle) Results - Labs CBC & BMP: 08/28/16 02:05 08/26/16 05:37 Lab Results: I have reviewed the past 24 hour labs Specialty Discharge - Follow Up or Referrals Follow up with: Vito Sanchez MD [Physician] - (3-4 weeks)
--- NOTE | 2016-08-28 14:21 | Family Practice Progress Note ---
Family Practice - PN: Subj Interval history: Patient is generally doing well. He has been sitting up and ambulating with assistance. Reviewed vital and labs which are stable. states that this is the second fall that the patient is had in the last 2 weeks. She is concerned that there is some underlying pathology causing the falls. Advised that I will defer this to Dr. Arrieta since he is more familiar with Mr. Suggs's healthcare. Patient and family deny any localized weakness or deficits. states that he does become dizzy frequently. Not sure whether this is only when he stands up or what precipitates the vertigo. Again we'll defer this to Dr. Arrieta to decide if further studies are needed. Exam (Progress Note) - Constitutional Vitals: Period Temp Pulse Resp BP Sys/Schwartz Pulse Ox Last 24 Hr 97.6 F-98.6 F 60-89 16-19 148-170/75-89 95-98 General appearance: no acute distress - Head Head exam: Present: normal inspection - ENT ENT exam: Present: normal exam - Respiratory Respiratory exam: Present: clear to auscultation bilaterally - Cardiovascular Cardiovascular exam: Present: irregular rhythm - GI/Abdominal GI/Abdominal exam: Present: normal bowel sounds - Extremities Exam Extremities exam: Present: other (limitation secondary to fracture) - Neurological Exam Neurological exam: Present: alert, oriented X3 Results - Labs CBC & BMP: 08/28/16 02:05 08/26/16 05:37 Specialty Discharge - Follow Up or Referrals Follow up with: Vito Sanchez MD [Physician] - (3-4 weeks)
[2016-08-28] MEDS: ZALEPLON 5 MG CAPSULE PO SCH (20:35)
--- NOTE | 2016-08-29 08:22 | Family Practice Progress Note ---
Family Practice - PN: Subj Interval history: Patient states he is feeling a bit better this morning but still has persistent dizziness. This is what precipitated his original fall. States yesterday he was dizzy while he was sitting up in the chair. He provides a history of vertigo. He denies headaches or nausea vomiting. Exam (Progress Note) - Constitutional Vitals: Period Temp Pulse Resp BP Sys/Schwartz Pulse Ox Last 24 Hr 97.9 F-98.5 F 66-107 17-20 107-170/60-83 93-97 Exam: Objective a well-developed gentleman is awake alert and able give good history. Cardiovascular: Heart rates regular without murmurs or gallops. Respiratory: Lungs clear to auscultation bilaterally. Abdomen: The abdomen soft and nontender to palpation. Neuro: Patient had no pronator drift. His face is symmetrical and normal finger to nose. Results - Labs CBC & BMP: 08/28/16 02:05 08/26/16 05:37 Lab Results: I have reviewed the past 24 hour labs Assessment and Plan (1) Subcapital fracture of neck of right femur Status: Acute Assessment and plan: 08/25/2016: Patient seen and evaluated by Dr. Sanchez and is scheduled for surgery later this afternoon. She was noted to have a normal EKG in the emergency room. Patient has no contraindications to planned procedure and has no increased risk of cardiovascular or pulmonary complications except those attributable to his age. 08/26/2016: Patient is doing well postop. 08/29/2016: Patient is doing well postop check for persistent complaint of dizziness. Will get CT brain today. Current Visit: Yes Specialty Discharge - Follow Up or Referrals Follow up with: Vito Sanchez MD [Physician] - (3-4 weeks)
[2016-08-29] MEDS: PRAVASTATIN 40 MG TABLET PO SCH (09:33)
[2016-08-29] MEDS: ALLOPURINOL 100 MG TABLET PO SCH (09:33)
[2016-08-29] MEDS: tiZANidine 4 MG TABLET PO SCH (09:33)
[2016-08-29] MEDS: PANTOPRAZOLE 40 MG TABLET PO SCH (09:33)
[2016-08-29] MEDS: CLOPIDOGREL 75 MG TABLET PO SCH (09:33)
[2016-08-29] MEDS: METOPROLOL TARTRATE 25 MG TABLET PO SCH (09:33)
[2016-08-29] MEDS: ASPIRIN EC 81 MG TABLET PO SCH (09:33)
[2016-08-29] MEDS: ENOXAPARIN 40 MG/0.4 ML SYRINGE SUBCUT SCH (10:28)
--- NOTE | 2016-08-29 11:07 | CT Report ---
CT head/brain wo con Indication: Persistent dizziness. CT BRAIN WITHOUT CONTRAST DLP: 1073 mGy*cm Comparison: None. Date of admission: 08/25/2016. Technique: Axial noncontrast CT images of the brain were obtained. Findings: No acute hemorrhage, mass or mass effect. Generalized atrophy and patchy periventricular white matter hypodensity is present throughout both convexities. Cortical zabala-white junction and structures of the basal ganglia are well-defined. No bone lesions are shown. Internal auditory canals are symmetric. CP angles are unremarkable. Visualized sinuses and mastoid air cells are clear. Impression: No acute intracranial pathology. Generalized atrophy and changes consistent with microvascular disease. PROCEDURE INTERPRETED AT [facility] DEPARTMENT OF RADIOLOGY Final Report Signed by: Cleveland Hilton M.D.
[2016-08-29] MEDS: ZALEPLON 5 MG CAPSULE PO SCH (20:33)
--- NOTE | 2016-08-30 07:23 | Orthopedic Progress Note ---
Assessment and Plan (1) Subcapital fracture of neck of right femur Status: Acute Assessment and plan: DVT prophylaxis Ambulate with therapy twice daily Discharge to SB when bed available Current Visit: Yes Orthopedics - Subjective Interval history: No new c/o. Ambulating with assistance with PT. still has some dizziness. c/d/i, NVI Exam - Constitutional Vitals: Period Temp Pulse Resp BP Sys/Schwartz Pulse Ox Last 24 Hr 97.7 F-98.6 F 60-73 18-18 130-151/73-87 94-96 Results - Labs CBC & BMP: 08/28/16 02:05 08/26/16 05:37 Specialty Discharge - Follow Up or Referrals Follow up with: Vito Sanchez MD [Physician] - 09/21/16 12:15 pm (3-4 weeks)
--- NOTE | 2016-08-30 08:23 | Discharge Summary ---
Hospital Course - Hospital Course Hospital Course: Patient 71-year-old white male admitted emergency room after he fell on the street in front of [facility]. Patient sustained a fracture of his right hip and required ORIF. Patient seen in consultation with Dr. Vito Sanchez and underwent surgery the day of admission. Patient has done well since then but has some persistent dizziness. CT was performed on 08/29/2016 which revealed no acute abnormality in his brain. Patient has no loss of sensorium but has fallen several times before this episode. Patient doing well postop is going to require swing bed. Diagnosis - Discharge Diagnosis (1) Subcapital fracture of neck of right femur Status: Acute Specialty Discharge - Follow Up or Referrals Follow up with: Vito Sanchez MD [Physician] - 09/21/16 12:15 pm (3-4 weeks) Discharge Plan - Discharge Data Disposition: Swing Bed W Planned Readmit Condition at Discharge: Stable Discharge Diet: advance to your usual diet Activity: as per physical therapy Hygiene: may shower - Discharge Medications New Bisacodyl Tab [Dulcolax Tab] 10 mg PO DAILY PRN #0 tablet PRN Reason: Constipation Magnesium Hydroxide Susp [Milk of Magnesia] 30 ml PO Q6H PRN #0 udcup PRN Reason: Constipation Zaleplon [Sonata] 5 mg PO BEDTIME capsule diphenhydrAMINE CAP [Benadryl Cap] 25 mg PO Q6H PRN #0 capsule PRN Reason: Itching HYDROcodone/ACETAMIN 7.5-325 [[place] 7.5-325] 1 - 2 tablet PO Q4H PRN #60 tablet PRN Reason: Pain Moderate (4-7) Acetaminophen Tab [Tylenol Tab] 650 mg PO Q6H PRN #0 tablet PRN Reason: Pain Mild (1-3) Pantoprazole Tab [Protonix Tab] 40 mg PO DAILY tablet Continue tiZANidine [Zanaflex] 4 mg PO DAILY Clopidogrel Bisulfate [Clopidogrel] 75 mg PO DAILY Pravastatin Sodium 80 mg PO DAILY Metoprolol Tartrate Tab [Lopressor Tab] 25 mg PO DAILY Aspirin [Ecotrin] 81 mg PO DAILY Dexlansoprazole [Dexilant] 60 mg PO DAILY Allopurinol [Zyloprim] 100 mg PO DAILY Discontinued Zolpidem Tartrate 10 mg PO BEDTIME Zolpidem Tartrate [Ambien] 10 mg PO BEDTIME - Follow Up or Referral Follow Up: Vito Sanchez MD [Physician] - 09/21/16 12:15 pm (3-4 weeks) - Forms/Instructions Instructions: Hip Fracture (GEN) Exam - Constitutional Vitals: Period Temp Pulse Resp BP Sys/Schwartz Pulse Ox Last 24 Hr 97.7 F-98.6 F 62-73 18-18 130-151/73-87 94-96 Exam: Objective a well-developed gentleman is awake alert and able give good history. Cardiovascular: Heart rates regular without murmurs or gallops. Respiratory: Lungs clear to auscultation bilaterally. Abdomen: The abdomen soft and nontender to palpation. Neuro: Patient had no pronator drift. His face is symmetrical and normal finger to nose. DS: Provider Date of admission: 08/25/16 11:03 Primary care physician: . No PCP Attending physician on admission: Royce Arrieta MD Consults: 08/25/16 11:04 Consult to Anesthesiology [CONS] Routine Consulting Provider: Reason for Anesthesiology: Pre-op Clearance 08/25/16 11:06 Consult to Physician [CONS] Routine Comment: fracture right hip Consulting Provider: Vito Sanchez Consulting Provider Notified: Yes When should Consulting Provider be notified: Now Person Notified: anirudh fritz Date Notified: 08/25/16 Time Notified: 13:49 08/25/16 14:23 Consult to Pharmacy [CONS] Routine Reason for Pharmacy Consult: Adjust Meds Renal Funct 08/25/16 16:18 Consult to Occupational Therapy [CONS] Routine Reason for Occupational Therapy: Evaluate and Treat Consult to Physical Therapy [CONS] Routine Reason for Physical Therapy: Evaluate and Treat Consult Comment: wbat 08/25/16 16:19 Consult to Case Mgmt/Social Srvs [CONS] Routine Reason for Case Mgmt/Social Srvs: Home Health Rehab Equipment Discharging clinician: Rocye Arrieta MD Expected date of discharge: 08/30/16
[2016-08-30] MEDS: CLOPIDOGREL 75 MG TABLET PO SCH (09:07)
[2016-08-30] MEDS: METOPROLOL TARTRATE 25 MG TABLET PO SCH (09:07)
[2016-08-30] MEDS: ENOXAPARIN 40 MG/0.4 ML SYRINGE SUBCUT SCH (09:07)
[2016-08-30] MEDS: PRAVASTATIN 40 MG TABLET PO SCH (09:07)
[2016-08-30] MEDS: ASPIRIN EC 81 MG TABLET PO SCH (09:07)
[2016-08-30] MEDS: ALLOPURINOL 100 MG TABLET PO SCH (09:07)
[2016-08-30] MEDS: tiZANidine 4 MG TABLET PO SCH (09:07)
[2016-08-30] MEDS: PANTOPRAZOLE 40 MG TABLET PO SCH (09:07)
[2016-08-30 12:55] VITALS: BP 136/75
[2016-08-30] MEDS: diphenhydrAMINE CAP 25 MG CAPSULE PO PRN (13:12)
== END 2016-08-30 14:10 | disposition swing bed, planned readmission (89) | DRG 482 ==
LOC: N.ED 08:55 → N.EDINP 12:03 → N.3E 13:37
PROVIDERS: ADMIT Family Medicine; ATTEND Family Medicine

== ENCOUNTER 2019-10-22 10:37 | Observation (INO) ==
[2019-10-22 11:15] LABS: Basophils # 0.1 10*3/uL (0.0-0.2); Basophils % 1.3 % (0.0-0.8); Eosinophils # 0.7 10*3/uL (0.0-0.87); Eosinophils % 7.5 % (0.00-10.9); Hematocrit 46.1 VOL% (42.0-52.0); Hemoglobin 14.5 GM/DL (14.0-18.0); Immature Granulocytes % 0.9 %; Immature Granulocytes Absolute 0.08 #; Lymphocytes # 1.8 10*3/uL (1.4-4.0); Lymphocytes % 19.8 % (21.2-54.2); Mean Corpuscular HGB Conc 31.5 GM/DL (32-36); Mean Corpuscular Volume 100.9 FL (87-102); Mean Platelet Volume 11.4 FL (9.6-12.0); Monocytes % 7.4 % (1.7-12.7); Neutrophils % 63.1 % (38.7-73.9); Platelet Count 117 T/CUMM (130-400); Red Blood Count 4.57 MC/CUMM (3.8-5.5); Red Cell Distribution Width 13.7 % (9.3-17.3); White Blood Count 8.9 T/CUMM (4-12)
[2019-10-22 11:31] LABS: PT Patient Result 10.4 SECS (9.6-12.2); Partial Thromboplastin Time 24.1 SECS (20.8-36.0)
[2019-10-22 11:41] LABS: Albumin 4.2 G/DL (3.4-5.0); Bilirubin,Total 0.7 MG/DL (0.2-1.0); Calcium 8.9 MG/DL (8.5-10.1); Osmolality,Calculated 284.4 MOS/KG (273-304); Total Protein 7.4 G/DL (6.4-8.3)
[2019-10-22] MEDS ORDERED: ASPIRIN 325 MG TABLET PO STA (11:46)
[2019-10-22] MEDS ORDERED: ENOXAPARIN 100 MG/ML SYRINGE SUBCUT STA (11:46)
[2019-10-22] MEDS ORDERED: ACETAMINOPHEN 325 MG TABLET PO PRN (11:49)
[2019-10-22] MEDS ORDERED: ONDANSETRON 4 MG/2 ML VIAL IV PRN (11:49)
[2019-10-22] MEDS: NITROGLYCERIN SL 0.4 MG TABLET SL PRN ×4 (12:05→14:36)
[2019-10-22] MEDS ORDERED: diphenhydrAMINE CAP 25 MG CAPSULE PO PRN (14:00)
[2019-10-22] MEDS ORDERED: MECLIZINE 25 MG TABLET PO PRN (14:00)
[2019-10-22] MEDS ORDERED: tiZANidine 4 MG TABLET PO PRN (14:00)
[2019-10-22] MEDS ORDERED: MORPHINE 4 MG/1 ML VIAL ONE (14:26)
[2019-10-22 15:01] LABS: Albumin 3.6 G/DL (3.4-5.0); Bilirubin,Total 1.1 MG/DL (0.2-1.0); Calcium 8.8 MG/DL (8.5-10.1); Osmolality,Calculated 283.4 MOS/KG (273-304); Total Protein 6.8 G/DL (6.4-8.3)
[2019-10-22] MEDS ORDERED: MORPHINE 4 MG/1 ML VIAL IV PRN (15:30)
[2019-10-22] MEDS: GABAPENTIN 100 MG CAPSULE PO SCH ×2 (17:40→21:00)
[2019-10-22 18:44] LABS: Troponin I < 0.015 NG/ML (0.00-0.045)
[2019-10-22 20:55] LABS: Troponin I < 0.015 NG/ML (0.00-0.045)
[2019-10-22] MEDS: METOPROLOL TARTRATE 25 MG TABLET PO SCH (20:59)
[2019-10-22] MEDS: traMADol 50 MG TABLET PO SCH (20:59)
[2019-10-22] MEDS: TICAGRELOR 90 MG TABLET PO SCH (21:00)
[2019-10-22] MEDS: DOCUSATE SODIUM 100 MG CAPSULE PO SCH (21:00)
[2019-10-22] MEDS ORDERED: MELATONIN 3 MG TABLET PO SCH (21:00)
[2019-10-22] MEDS ORDERED: SIMVASTATIN 40 MG TABLET PO SCH (21:00)
[2019-10-23 05:23] LABS: Basophils # 0.1 10*3/uL (0.0-0.2); Basophils % 1.1 % (0.0-0.8); Eosinophils # 0.6 10*3/uL (0.0-0.87); Eosinophils % 6.9 % (0.00-10.9); Hematocrit 39.2 VOL% (42.0-52.0); Hemoglobin 12.4 GM/DL (14.0-18.0); Immature Granulocytes % 0.6 %; Immature Granulocytes Absolute 0.05 #; Lymphocytes # 1.7 10*3/uL (1.4-4.0); Lymphocytes % 19.8 % (21.2-54.2); Mean Corpuscular HGB Conc 31.6 GM/DL (32-36); Mean Corpuscular Volume 100.3 FL (87-102); Mean Platelet Volume 11.6 FL (9.6-12.0); Monocytes % 10.2 % (1.7-12.7); Neutrophils % 61.4 % (38.7-73.9); Platelet Count 107 T/CUMM (130-400); Red Blood Count 3.91 MC/CUMM (3.8-5.5); Red Cell Distribution Width 13.7 % (9.3-17.3); White Blood Count 8.6 T/CUMM (4-12)
[2019-10-23 05:40] LABS: Macrocytosis Slight
[2019-10-23 05:41] LABS: Platelet Estimate Decreased
[2019-10-23 05:57] LABS: Osmolality,Calculated 284.4 MOS/KG (273-304)
[2019-10-23] MEDS ORDERED: ASPIRIN EC 81 MG TABLET PO SCH (09:00)
[2019-10-23] MEDS ORDERED: amLODIPine 2.5 MG TABLET PO SCH (09:00)
[2019-10-23] MEDS ORDERED: allopurinoL 100 MG TABLET PO SCH (09:00)
[2019-10-23] MEDS ORDERED: PANTOPRAZOLE 40 MG TABLET PO SCH (09:00)
[2019-10-23] MEDS ORDERED: LORATADINE 10 MG TABLET PO SCH (09:00)
[2019-10-23] MEDS ORDERED: CHOLECALCIFEROL 1,000 UNIT TABLET PO SCH (09:00)
[2019-10-23] MEDS ORDERED: NON-FORMULARY MEDICATION (Dexlansoprazole [Dexilant] 60 MG) PO SCH (09:00)
[2019-10-23] MEDS: traMADol 50 MG TABLET PO SCH (10:02)
[2019-10-23] MEDS: GABAPENTIN 100 MG CAPSULE PO SCH ×2 (10:02→15:34)
[2019-10-23] MEDS: DOCUSATE SODIUM 100 MG CAPSULE PO SCH (10:03)
[2019-10-23] MEDS: TICAGRELOR 90 MG TABLET PO SCH (10:03)
[2019-10-23] MEDS: METOPROLOL TARTRATE 25 MG TABLET PO SCH (10:05)
[2019-10-23] MEDS ORDERED: REGADENOSON 0.4 MG/5 ML SYRINGE IV ONE (15:18)
[2019-10-23 17:32] VITALS: BP 137/71
== END 2019-10-23 19:10 | disposition home or self-care (01) ==
LOC: N.ED 10:37 → N.EDINP 10:37 → N.2W 12:27
PROVIDERS: ADMIT Family Medicine; ATTEND Family Medicine